=== PATIENT | female | born 2000 | race Caucasian/White ===

== ENCOUNTER 2019-10-12 12:00 | Inpatient (IN) ==
[2019-10-12] MEDS ORDERED: Famotidine 20 MG/2 ML VIAL IVP PRN (12:32)
[2019-10-12] MEDS ORDERED: Naloxone 0.4 MG/ML INJ IVP PRN (12:32)
[2019-10-12] MEDS ORDERED: Ondansetron 4 MG/2 ML VIAL IVP PRN (12:32)
[2019-10-12] MEDS ORDERED: Metoclopramide 10 MG/2 ML VIAL IVP PRN (12:32)
[2019-10-12] MEDS ORDERED: *HR* Nalbuphine 10 MG/ML AMPUL IVP PRN (12:32)
[2019-10-12 13:09] LABS: Basophils % 0.3 %; Eosinophils # 0.1 K/mcL (0.0-0.6); Eosinophils % 0.5 %; Hematocrit 32.2 % (35.3-44.9); Hemoglobin 10.7 g/dL (11.5-15.4); Immature Granulocytes % 0.4 % (0-4); Lymphocytes # 1.2 K/mcL (0.6-4.6); Lymphocytes % 10.4 %; Mean Corpuscular HGB Conc 33.2 g/dL (31.6-35.5); Mean Corpuscular Hemoglobin 28.8 pg (28.0-33.3); Mean Corpuscular Volume 86.6 fL (83.0-100.0); Mean Platelet Volume 10.6 fL (9.4-12.4); Monocytes # 0.4 K/mcL (0.0-1.3); Monocytes % 3.3 %; Neutrophils # 9.9 K/mcL (1.6-8.9); Platelet Count 200 K/mcL (140-400); Red Blood Count 3.72 M/mcL (3.82-4.97); Red Cell Distribution Width 12.4 % (11.5-14.5); Segmented Neutrophils % 85.1 %; White Blood Count 11.6 K/mcL (4.3-11.1)
[2019-10-12] MEDS ORDERED: miSOPROStoL 25 MCG TABLET PO ONE (13:10)
[2019-10-12 13:13] LABS: Amphetamine Screen,Urine Negative ng/mL (Cutoff=1000); Barbiturate Screen,Urine Negative ng/mL (Cutoff=200); Benzodiazepines Screen,Urine Negative ng/mL (Cutoff=200); Cannabinoid Screen,Urine Negative ng/mL (Cutoff = 50); Cocaine Screen,Urine Negative ng/mL (Cutoff= 300); Opiate Screen,Urine Negative ng/mL (Cutoff=300); Phencyclidine Screen,Urine Negative ng/mL (Cutoff=25)
[2019-10-12] MEDS: Ringers Solution, Lactated 1,000 ML IVC SCH ×2 (13:31→16:57)
[2019-10-12] MEDS ORDERED: EPHEDrine 50 MG/ML VIAL IVP PRN (14:25)
[2019-10-12] MEDS ORDERED: Epidural Premix (fent/bupiv) 110 ML EP SCH (14:30)
[2019-10-12] MEDS ORDERED: Ropivacaine/PF 0.2% 20 ML VIAL ONE (17:04)
[2019-10-12] MEDS ORDERED: *HR* FentaNYL (PF) 100 MCG/2 ML VIAL ONE (17:04)
[2019-10-12] MEDS ORDERED: Rho Immune Globulin 1,500 UNIT SYRINGE IM PRN (21:05)
[2019-10-12] MEDS ORDERED: Oxytocin 20 units/ LR 1000 mL 20 UNIT/1,000 ML BAG IVC SCH (21:05)
[2019-10-12] MEDS ORDERED: Measles/Mumps/Rubella Vacc 0.5 ML VIAL SQ PRN (21:05)
[2019-10-12] MEDS ORDERED: Acetaminophen 325 MG TABLET PO PRN (21:05)
[2019-10-13 06:54] LABS: Basophils % 0.2 %; Eosinophils # 0.1 K/mcL (0.0-0.6); Eosinophils % 0.3 %; Hematocrit 28.2 % (35.3-44.9); Hemoglobin 9.4 g/dL (11.5-15.4); Immature Granulocytes % 0.3 % (0-4); Lymphocytes # 1.7 K/mcL (0.6-4.6); Lymphocytes % 9.2 %; Mean Corpuscular HGB Conc 33.3 g/dL (31.6-35.5); Mean Corpuscular Hemoglobin 29.3 pg (28.0-33.3); Mean Corpuscular Volume 87.9 fL (83.0-100.0); Mean Platelet Volume 10.6 fL (9.4-12.4); Monocytes % 5.4 %; Neutrophils # 15.1 K/mcL (1.6-8.9); Platelet Count 189 K/mcL (140-400); Red Blood Count 3.21 M/mcL (3.82-4.97); Red Cell Distribution Width 12.2 % (11.5-14.5); Segmented Neutrophils % 84.6 %
[2019-10-13 06:56] LABS: White Blood Count 17.9 K/mcL (4.3-11.1)
[2019-10-13] MEDS ORDERED: Prenatal Vit/FA 1 EACH TABLET PO SCH (09:00)
[2019-10-13] MEDS ORDERED: Ibuprofen 600 MG TABLET PO PRN (12:09)
[2019-10-13] MEDS ORDERED: Etonogestrel 68 MG IMPLANT IL ONE (15:25)
[2019-10-13] MEDS ORDERED: Lidocaine/EPI 1:100k 1% 30 ML VIAL INFILT ONE (15:25)
[2019-10-13 15:30] VITALS: BP 104/65
== END 2019-10-13 20:50 | disposition home or self-care (01) | DRG 806 ==
LOC: 1NENULAB 12:08 → 1NENUOBS 23:09
PROVIDERS: ADMIT Obstetrics & Gynecology; ATTEND Obstetrics & Gynecology